=== PATIENT | female | born 1965 | race Caucasian/White ===

== ENCOUNTER 2020-04-03 14:40 | Outpatient (CLI) | payer OTHER | END 2020-04-03 23:59 | disposition home or self-care (01) | LOC: MLB 14:40 → EDSTATUS 17:02 → MLB 23:59 → EDSTATUS 04-05 10:00 | PROVIDERS: ATTEND Internal Medicine Gastroenterology | DX: Z20.828 Contact with and (suspected) exposure to other viral communicable diseases (principal) ==